=== PATIENT | male | born 1970 | race Caucasian/White ===

== ENCOUNTER 2017-12-15 20:26 | Emergency (ER) | payer OTHER ==
[~2017-12-15] VITALS: Ht 182.9 cm; Wt 103.9 kg
[~2017-12-15 20:26] MED LIST: ACETAMINOPHEN-1 EAC1 PO; ALBUTEROL INHAL17 GM IH; AMBIEN 5 MG TABL5 M1 PO; AZITHROMYCIN 2250 MG PO; BACTRIM DS TAB1 EACH PO; CIPRO500 MG PO; DICLOFENAC SOD50 MG PO; DIPHENHIST50 MG PO; DOXEPIN 10 MG C10 MG PO; FLEXERIL; FLEXERIL PO; FLOMAX0.4 MG PO; FLOVENT HFA 2220 MC1 IH; HYDROCODONE-AP1 EAC6 PO; IBUPROFEN 800800 M1 PO; KEFLEX500 MG PO; MECLIZINE 25 MG25 M1 PO; MEDROL DOSPAK21 TA1 PO; MEDROLDOSEPACK PO; NAPROSYN500 MG PO; NEURONTIN 300300 M1 PO; NOHOMEMEDICATIONS; NORCO 5-325 TA1 EAC1 PO; NORCO 5-325 TA1 EACH PO; ONDANSETRON HCL4 M2 PO; PHENERGAN 25 MG25 M1 PO; PREDNISONE 20 M20 MG PO; PROAIR HFA8.5 GM INH; PYRIDIUM100 M1 PO; ROBAXIN 750 MG750 M1 PO; ROBAXIN500 MG PO; TEGRETOL XR100 MG PO; TESSALON PERLE100 MG PO; TESSALON200 MG PO; VALIUM2 MG PO; VICODIN 5-5001 EACH PO; XANAX 0.25 MG0.25 MG PO; ZPAK PO
[2017-12-15 20:33] VITALS: BP 155/92
[2017-12-15 20:42] LABS: URINE BILIRUBIN NEGATIVE (Negative); URINE BLOOD NEGATIVE (Negative); URINE CLARITY CLEAR; URINE COLOR YELLOW; URINE GLUCOSE-RANDOM NEGATIVE (Negative); URINE KETONES NEGATIVE (Negative); URINE LEUKOCYTES-REFLEX NEGATIVE (Negative); URINE NITRITE-REFLEX NEGATIVE (Negative); URINE PROTEIN NEGATIVE (Negative); URINE SPECIFIC GRAVITY 1.025 (1.005-1.030); URINE UROBILINOGEN 0.2 E.U./dl (0.2-1.0)
== END 2017-12-15 20:50 | disposition home or self-care (01) ==
LOC: M.ERS 20:26
PROVIDERS: Nurse Practitioner Family
DX: Z20.2 Contact with and (suspected) exposure to infections with a predominantly sexual mode of transmission (principal); F41.9 Anxiety disorder, unspecified; Z98.890 Other specified postprocedural states

== ENCOUNTER 2017-12-30 13:49 | Emergency (ER) | payer OTHER ==
[~2017-12-30] VITALS: Ht 182.9 cm; Wt 102.1 kg
[2017-12-30] MEDS ORDERED: DOXEPIN 25 MG C25 MG PO (13:54)
[2017-12-30 14:21] LABS: HEMATOCRIT 51.7 % (42.0-52.0); MCH 30.3 pg (26.0-34.0); MCHC 32.9 g/dL (28.0-37.0); MCV 92.3 fL (80.0-100.0); MPV 8.2 fl. (7.2-11.1); RBC 5.61 mil/uL (4.50-6.00); RDW-CV 14.1 % (10.5-14.5); WBC 7.5 thou/uL (4.0-11.0)
[2017-12-30 14:25] LABS: ANION GAP 5 mmol/L (7-16); BUN 15 mg/dL (7-18); CALCIUM 8.4 mg/dL (8.5-10.1); CHLORIDE 105 mmol/L (98-107); CO2 31 mmol/L (21-32); CREATININE 1.2 mg/dL (0.6-1.3); GLUCOSE 95 mg/dL (70-99); POTASSIUM 3.8 mmol/L (3.5-5.1); SODIUM 141 mmol/L (136-145)
[2017-12-30 14:33] LABS: TROPONIN-I LEVEL <0.06 ng/mL (<0.06)
[2017-12-30 16:31] VITALS: BP 134/76
--- NOTE | 2017-12-31 13:00 | EKG ---
[place] [address] ELECTROCARDIOGRAM REPORT Name: MAILE BARNES Room: [facility]#: [id number] Admission: 12/30/17 Attend Phys: Discharge: 12/30/17 Date of : 72 Report #: [id number] THIS REPORT FOR: //name// [facility] ED Test Date: 2017-12-30 Test Time: 14:33:10 Pat Name: MAILE RIZVILEY Department: Room: Gender: M Ux Developer Designer: : 1970 Requested By: Sagrario Nolasco Order Number: [id number] MD: Alec Page Measurements Intervals [place] Rate: 106 P: 61 DE: 169 QRS: -70 QRSD: 96 T: 41 QT: 319 QTc: 424 Interpretive Statements Sinus tachycardia LAD, consider left anterior fascicular block Borderline low voltage, extremity leads Compared to ECG 05/20/2015 22:46:18 Sinus rhythm no longer present Electronically Signed On 12-31-2017 13:00:15 CDT by Alec Page [email or web address] <ELECTRONICALLY SIGNED> By: Alec Page MD, [facility] 12/31/17 1300 1433 1433 Alec Page MD, [facility] /EPI
--- NOTE | 2018-01-07 09:07 | PATH ---
[address] [address] PATHOLOGY RPT PROCEDURE Name: DAVID OWEN Room: [facility]#: [id number] Admission: 12/30/17 Date of : 72 Discharge: 12/30/17 Report #: [id number] Path Case #: [id number] [facility] Accession Number: [id number] . 01 Material submitted: . ESOPHAGEAL BIOPSY . 01 Clinician provided ICD-10: T17.208A . 01 Clinical history: . Food bolus, rule out eosinophilic esophagitis . 02 Diagnosis: Esophageal biopsy: - Compatible with eosinophilic (allergic) esophagitis (see comment). P/01/01/2018 . 02 Comment: The biopsies reveal benign esophageal mucosa with prominent basilar cell hyperplasia and variable numbers of eosinophils generally ranging between 10 to 30 per high power field with focal superficial/surface aggregation also noted. Scant submucosal stroma appears fibrotic. (HIRA:pit 01/01/2018) . 02 Electronically signed: . Roc Jack MD, Pathologist NPI- [id number] . 01 Gross description: . Received in formalin "David Owen, esophageal biopsy" are 2 translucent tissue fragments each averaging 0.2 cm which are entirely submitted as A1. . (MYRON; 12/31/2017) JBR/JBR . 02 Pathologist provided ICD-10: K20.0 . 02 CPT . 288282 Specimen Comment: A courtesy copy of this report has been sent to Specimen Comment: [phone], . Specimen Comment: Report sent to / DR SIMONS Performed at: [address] [id number] [place] [address] PATHOLOGY RPT PROCEDURE Name: DAVID OWEN [id number] Admission: 12/30/17 Date of : 72 Discharge: 12/30/17 Report #: [id number] Path Case #: [id number] MD Dirk Iglesias MD Phone: [phone] Performed at: [address] [address] [address], [place], [place] [id number] MD Roc Jack MD Phone: [phone]
== END 2017-12-30 16:58 | disposition home or self-care (01) ==
LOC: M.GI 13:49 → M.ERS 13:49 → M.GI 13:49
PROVIDERS: Physician Assistant
DX: R13.10 Dysphagia, unspecified (principal); R00.0 Tachycardia, unspecified; F41.9 Anxiety disorder, unspecified

== ENCOUNTER 2018-01-31 11:55 | Emergency (ER) | payer OTHER ==
[~2018-01-31] VITALS: Ht 182.9 cm; Wt 102.1 kg
[~2018-01-31 11:55] MED LIST changes: +DOXEPIN 25 MG C25 MG PO
[2018-01-31 13:12] LABS: URINE BILIRUBIN NEGATIVE (Negative); URINE BLOOD NEGATIVE (Negative); URINE CLARITY CLEAR; URINE COLOR YELLOW; URINE GLUCOSE-RANDOM NEGATIVE (Negative); URINE KETONES NEGATIVE (Negative); URINE LEUKOCYTES-REFLEX NEGATIVE (Negative); URINE NITRITE-REFLEX NEGATIVE (Negative); URINE PROTEIN NEGATIVE (Negative); URINE UROBILINOGEN 0.2 E.U./dl (0.2-1.0)
[2018-01-31] MEDS ORDERED: ACYCLOVIR 800800 MG PO (13:21)
[2018-01-31 13:32] VITALS: BP 133/90
== END 2018-01-31 13:35 | disposition home or self-care (01) ==
LOC: M.ERS 11:55
PROVIDERS: Nurse Practitioner Family
DX: A60.01 Herpesviral infection of penis (principal); F41.9 Anxiety disorder, unspecified

== ENCOUNTER 2018-04-25 17:48 | Emergency (ER) | payer OTHER ==
[~2018-04-25] VITALS: Ht 182.9 cm; Wt 103.9 kg
[~2018-04-25 17:48] MED LIST changes: +ACYCLOVIR 800800 MG PO
[2018-04-25] MEDS ORDERED: IBUPROFEN 800800 M1 PO (18:09)
[2018-04-25] MEDS ORDERED: ROBAXIN500 MG PO (18:09)
[2018-04-25 18:55] VITALS: BP 127/75
== END 2018-04-25 18:56 | disposition home or self-care (01) ==
LOC: M.ERS 17:48
DX: S16.1XXA Strain of muscle, fascia and tendon at neck level, initial encounter (principal); S39.012A Strain of muscle, fascia and tendon of lower back, initial encounter; F41.9 Anxiety disorder, unspecified; Z98.890 Other specified postprocedural states; V49.49XA Driver injured in collision with other motor vehicles in traffic accident, initial encounter; Y93.89 Activity, other specified; Y92.89 Other specified places as the place of occurrence of the external cause; Y99.8 Other external cause status

== ENCOUNTER 2018-06-20 00:43 | Emergency (ER) | payer OTHER ==
[~2018-06-20] VITALS: Ht 185.4 cm; Wt 104.3 kg
[2018-06-20] MEDS ORDERED: XANAX1 MG PO (01:01)
[2018-06-20 01:02] LABS: URINE BILIRUBIN NEGATIVE (Negative); URINE BLOOD NEGATIVE (Negative); URINE CLARITY CLEAR; URINE COLOR YELLOW; URINE GLUCOSE-RANDOM NEGATIVE (Negative); URINE KETONES NEGATIVE (Negative); URINE LEUKOCYTES-REFLEX 1+ (Negative); URINE NITRITE-REFLEX NEGATIVE (Negative); URINE PROTEIN NEGATIVE (Negative); URINE UROBILINOGEN 0.2 E.U./dl (0.2-1.0)
[2018-06-20 01:11] LABS: BACTERIA-REFLEX >30 Many /HPF (None Seen); CASTS None Seen /LPF (None Seen); CRYSTALS None Seen /LPF (None Seen); MUCUS 0-3 Light strn/LPF (None Seen); SQUAMOUS 0-3 Few /LPF (0-3); URINE RBC 3-10 Few /HPF (0-2); URINE WBC-REFLEX >25 Many /HPF (0-5)
[2018-06-20] MEDS ORDERED: CIPROFLOXACIN500 M1 PO (01:53)
[2018-06-20 02:09] VITALS: BP 132/86
[2018-06-20 15:09] LABS: HIV-1/HIV-2 ANTIBODY Non Reactive (Non Reactive)
== END 2018-06-20 02:12 | disposition home or self-care (01) ==
LOC: M.ERS 00:43
PROVIDERS: Personal Emergency Response Attendant
DX: N39.0 Urinary tract infection, site not specified (principal); Z20.2 Contact with and (suspected) exposure to infections with a predominantly sexual mode of transmission; F41.9 Anxiety disorder, unspecified; Z90.89 Acquired absence of other organs

== ENCOUNTER 2018-06-25 13:00 | Emergency (ER) | payer OTHER ==
[~2018-06-25] VITALS: Ht 182.9 cm; Wt 105.7 kg
[~2018-06-25 13:00] MED LIST changes: +CIPROFLOXACIN500 M1 PO; +XANAX1 MG PO
[2018-06-25 13:14] LABS: URINE BILIRUBIN NEGATIVE (Negative); URINE BLOOD NEGATIVE (Negative); URINE CLARITY CLEAR; URINE COLOR YELLOW; URINE GLUCOSE-RANDOM NEGATIVE (Negative); URINE KETONES NEGATIVE (Negative); URINE LEUKOCYTES-REFLEX NEGATIVE (Negative); URINE NITRITE-REFLEX NEGATIVE (Negative); URINE PROTEIN NEGATIVE (Negative); URINE SPECIFIC GRAVITY 1.025 (1.005-1.030); URINE UROBILINOGEN 0.2 E.U./dl (0.2-1.0)
[2018-06-25 14:10] VITALS: BP 112/62
== END 2018-06-25 14:10 | disposition home or self-care (01) ==
LOC: M.ERS 13:00
PROVIDERS: Nurse Practitioner Psychiatric/Mental Health
DX: Z20.2 Contact with and (suspected) exposure to infections with a predominantly sexual mode of transmission (principal); Z72.51 High risk heterosexual behavior; F41.9 Anxiety disorder, unspecified; Z98.890 Other specified postprocedural states

== ENCOUNTER 2018-07-02 15:26 | Emergency (ER) | payer OTHER ==
[~2018-07-02] VITALS: Ht 182.9 cm; Wt 105.7 kg
[2018-07-02] MEDS ORDERED: DOXEPIN 10 MG C10 MG PO (15:43)
[2018-07-02 16:28] VITALS: BP 127/89
== END 2018-07-02 16:29 | disposition home or self-care (01) ==
LOC: M.ERS 15:26
DX: Z20.2 Contact with and (suspected) exposure to infections with a predominantly sexual mode of transmission (principal); F41.9 Anxiety disorder, unspecified; Z98.890 Other specified postprocedural states

== ENCOUNTER 2018-07-08 11:47 | Emergency (ER) | payer OTHER ==
[~2018-07-08] VITALS: Ht 182.9 cm; Wt 105.7 kg
[2018-07-08 12:29] LABS: URINE BILIRUBIN NEGATIVE (Negative); URINE BLOOD NEGATIVE (Negative); URINE CLARITY CLEAR; URINE COLOR YELLOW; URINE GLUCOSE-RANDOM NEGATIVE (Negative); URINE KETONES NEGATIVE (Negative); URINE LEUKOCYTES-REFLEX NEGATIVE (Negative); URINE NITRITE-REFLEX NEGATIVE (Negative); URINE PROTEIN NEGATIVE (Negative); URINE UROBILINOGEN 0.2 E.U./dl (0.2-1.0)
[2018-07-08] MEDS ORDERED: DOXYCYCLINE 10100 MG PO (12:45)
[2018-07-08 13:51] VITALS: BP 138/89
== END 2018-07-08 13:52 | disposition home or self-care (01) ==
LOC: M.ERS 11:47
PROVIDERS: Emergency Medicine Emergency Medical Services
DX: A64 Unspecified sexually transmitted disease (principal); F41.9 Anxiety disorder, unspecified; Z90.89 Acquired absence of other organs

== ENCOUNTER 2019-01-13 11:01 | Emergency (ER) | payer OTHER ==
[~2019-01-13] VITALS: Ht 182.9 cm; Wt 107.5 kg
[~2019-01-13 11:01] MED LIST changes: +DOXYCYCLINE 10100 MG PO
[2019-01-13] MEDS ORDERED: EAR WAX DROPS15 ML OTIC (12:08)
[2019-01-13 12:11] VITALS: BP 150/89
== END 2019-01-13 12:10 | disposition home or self-care (01) ==
LOC: M.ERS 11:01
DX: H61.21 Impacted cerumen, right ear (principal); F41.9 Anxiety disorder, unspecified; Z90.89 Acquired absence of other organs; Z86.19 Personal history of other infectious and parasitic diseases

== ENCOUNTER 2019-05-13 12:56 | Emergency (ER) | payer OTHER ==
[~2019-05-13] VITALS: Ht 182.9 cm; Wt 106.6 kg
[~2019-05-13 12:56] MED LIST changes: +EAR WAX DROPS15 ML OTIC
[2019-05-13 13:14] LABS: URINE BILIRUBIN NEGATIVE (Negative); URINE BLOOD NEGATIVE (Negative); URINE CLARITY CLEAR; URINE COLOR YELLOW; URINE GLUCOSE-RANDOM NEGATIVE (Negative); URINE KETONES NEGATIVE (Negative); URINE LEUKOCYTES-REFLEX NEGATIVE (Negative); URINE NITRITE-REFLEX NEGATIVE (Negative); URINE PROTEIN NEGATIVE (Negative); URINE SPECIFIC GRAVITY 1.015 (1.005-1.030); URINE UROBILINOGEN 0.2 E.U./dl (0.2-1.0)
[2019-05-13 14:04] VITALS: BP 123/87
== END 2019-05-13 14:05 | disposition home or self-care (01) ==
LOC: M.ERS 12:56
PROVIDERS: Physician Assistant
DX: R30.0 Dysuria (principal); Z90.89 Acquired absence of other organs

== ENCOUNTER 2019-12-31 13:57 | Emergency (ER) | payer OTHER ==
[~2019-12-31] VITALS: Ht 182.9 cm; Wt 105.2 kg
[2019-12-31 14:09] VITALS: BP 132/93
[2019-12-31 14:12] LABS: URINE BILIRUBIN NEGATIVE (Negative); URINE BLOOD NEGATIVE (Negative); URINE CLARITY CLEAR; URINE COLOR YELLOW; URINE GLUCOSE-RANDOM NEGATIVE (Negative); URINE KETONES NEGATIVE (Negative); URINE LEUKOCYTES-REFLEX NEGATIVE (Negative); URINE NITRITE-REFLEX NEGATIVE (Negative); URINE PROTEIN NEGATIVE (Negative); URINE SPECIFIC GRAVITY 1.025 (1.005-1.030); URINE UROBILINOGEN 0.2 E.U./dl (0.2-1.0)
[2019-12-31] MEDS ORDERED: DOXEPIN HC10 MG/1 ML PO (14:12)
[2019-12-31] MEDS ORDERED: AZITHROMYCIN 2250 MG PO (14:33)
[2019-12-31] MEDS ORDERED: SUPRAX400 M1 PO (14:33)
== END 2019-12-31 14:43 | disposition home or self-care (01) ==
LOC: M.ERS 13:57
PROVIDERS: Family Medicine
DX: N48.89 Other specified disorders of penis (principal); Z20.2 Contact with and (suspected) exposure to infections with a predominantly sexual mode of transmission

== ENCOUNTER 2020-03-09 23:39 | Emergency (ER) | payer OTHER ==
[~2020-03-09] VITALS: Ht 182.9 cm; Wt 106.6 kg
[~2020-03-09 23:39] MED LIST changes: +DOXEPIN HC10 MG/1 ML PO; +SUPRAX400 M1 PO
[2020-03-10 00:20] LABS: URINE BILIRUBIN NEGATIVE (Negative); URINE BLOOD NEGATIVE (Negative); URINE CLARITY CLEAR; URINE COLOR YELLOW; URINE GLUCOSE-RANDOM NEGATIVE (Negative); URINE KETONES NEGATIVE (Negative); URINE LEUKOCYTES-REFLEX NEGATIVE (Negative); URINE NITRITE-REFLEX NEGATIVE (Negative); URINE PROTEIN NEGATIVE (Negative); URINE UROBILINOGEN 0.2 E.U./dl (0.2-1.0)
[2020-03-10 00:42] LABS: ABSOLUTE EOSINOPHILS 0.2 thou/uL (0.0-0.7); ABSOLUTE LYMPHOCYTES 2.4 thou/uL (0.8-5.3); ABSOLUTE MONOCYTES 0.3 thou/uL (0.0-1.2); ABSOLUTE NEUTROPHILS 5.5 thou/uL (1.6-8.1); BASOPHILS 0.3 %; EOSINOPHILS 2.6 %; HEMATOCRIT 50.3 % (42.0-52.0); HEMOGLOBIN 17.1 gm/dL (14.0-18.0); LYMPHOCYTES 28.7 %; MCH 30.5 pg (26.0-34.0); MCHC 34.1 g/dL (28.0-37.0); MCV 89.7 fL (80.0-100.0); MONOCYTES 4.1 %; MPV 7.9 fl. (7.2-11.1); NUCLEATED RBCS 0 /100WBC; PLATELET COUNT* 237 thou/uL (150-400); POLYS 64.3 %; RBC 5.61 mil/uL (4.50-6.00); RDW-CV 13.7 % (10.5-14.5); WBC 8.5 thou/uL (4.0-11.0)
[2020-03-10 00:58] LABS: CALCIUM 8.5 mg/dL (8.5-10.1); CREATININE 1.4 mg/dL (0.6-1.3); POTASSIUM 3.7 mmol/L (3.5-5.1)
[2020-03-10 01:03] LABS: ALBUMIN 3.5 g/dL (3.4-5.0); TOTAL BILIRUBIN 0.4 mg/dL (<0.1-1.0); TOTAL PROTEIN 7.1 g/dL (6.4-8.2)
[2020-03-10 05:25] VITALS: BP 125/74
== END 2020-03-10 05:25 | disposition home or self-care (01) ==
LOC: M.ERS 23:39
PROVIDERS: Personal Emergency Response Attendant
DX: I31.3 Pericardial effusion (noninflammatory) (principal); R19.7 Diarrhea, unspecified; Z87.442 Personal history of urinary calculi; Z90.89 Acquired absence of other organs; F41.9 Anxiety disorder, unspecified; Z90.49 Acquired absence of other specified parts of digestive tract; Z79.899 Other long term (current) drug therapy

== ENCOUNTER 2021-04-04 13:05 | Emergency (ER) | payer OTHER ==
[~2021-04-04] VITALS: Ht 182.9 cm; Wt 110.7 kg
[2021-04-04 16:52] LABS: URINE BILIRUBIN NEGATIVE (Negative); URINE BLOOD NEGATIVE (Negative); URINE CLARITY CLEAR; URINE COLOR YELLOW; URINE GLUCOSE-RANDOM NEGATIVE (Negative); URINE KETONES NEGATIVE (Negative); URINE LEUKOCYTES-REFLEX NEGATIVE (Negative); URINE NITRITE-REFLEX NEGATIVE (Negative); URINE PROTEIN NEGATIVE (Negative); URINE SPECIFIC GRAVITY 1.025 (1.005-1.030); URINE UROBILINOGEN 0.2 E.U./dl (0.2-1.0)
[2021-04-04 17:21] LABS: ABSOLUTE EOSINOPHILS 0.3 thou/uL (0.0-0.7); ABSOLUTE MONOCYTES 0.3 thou/uL (0.0-1.2); BASOPHILS 0.2 %; EOSINOPHILS 3.3 %; HEMATOCRIT 52.5 % (42.0-52.0); HEMOGLOBIN 17.6 gm/dL (14.0-18.0); LYMPHOCYTES 20.7 %; MCH 30.2 pg (26.0-34.0); MCHC 33.5 g/dL (28.0-37.0); MCV 90.4 fL (80.0-100.0); MONOCYTES 3.6 %; MPV 8.1 fl. (7.2-11.1); NUCLEATED RBCS 0 /100WBC; PLATELET COUNT* 235 thou/uL (150-400); POLYS 72.2 %; RBC 5.81 mil/uL (4.50-6.00); RDW-CV 14.2 % (10.5-14.5); WBC 9.6 thou/uL (4.0-11.0)
[2021-04-04 17:28] LABS: CALCIUM 8.4 mg/dL (8.5-10.1); CREATININE 1.2 mg/dL (0.6-1.3); POTASSIUM 3.9 mmol/L (3.5-5.1)
[2021-04-04 17:37] LABS: ALBUMIN 3.6 g/dL (3.4-5.0); TOTAL BILIRUBIN 0.8 mg/dL (<0.1-1.0); TOTAL PROTEIN 7.3 g/dL (6.4-8.2)
--- NOTE | 2021-04-04 18:18 | EKG ---
[place] [address] ELECTROCARDIOGRAM REPORT Name: MAILE BARNES Room: [facility]#: [id number] Admission: 04/04/21 Attend Phys: Discharge: Date of : 72 Date of Service: 04/04/21 1736 Report #: [id number] THIS REPORT FOR: //name// [facility] ED Test Date: 2021-04-04 Test Time: 17:36:18 Pat Name: MAILE BARNES Department: Room: Gender: Scientific Software Developer: : 1970 Requested By: Denia Villanueva Order Number: [id number] MD: Alec Page Measurements Intervals [place] Rate: 64 P: 56 PA: 177 QRS: -70 QRSD: 100 T: 15 QT: 374 QTc: 386 Interpretive Statements Sinus rhythm Inferior infarct, old Compared to ECG 12/30/2017 14:33:10 Myocardial infarct finding now present Sinus tachycardia no longer present Electronically Signed On 04-04-2021 18:18:09 [employer] by Alec Page [email or web address] <ELECTRONICALLY SIGNED> By: Alec Page MD, [facility] 04/04/21 1818 1736 1736 Alec Page MD, [facility] /EPI
[2021-04-04] MEDS ORDERED: ZOFRAN ODT4 MG PO (18:37)
[2021-04-04] MEDS ORDERED: DICYCLOMINE HCL20 MG PO (18:37)
[2021-04-04 18:46] VITALS: BP 137/90
== END 2021-04-04 18:45 | disposition home or self-care (01) ==
LOC: M.ERS 13:05
PROVIDERS: Nurse Practitioner Family
DX: K42.9 Umbilical hernia without obstruction or gangrene (principal); R10.11 Right upper quadrant pain; R07.81 Pleurodynia; R19.7 Diarrhea, unspecified; R06.02 Shortness of breath; R42 Dizziness and giddiness; F41.9 Anxiety disorder, unspecified; Z98.890 Other specified postprocedural states; Z90.49 Acquired absence of other specified parts of digestive tract; Z90.89 Acquired absence of other organs; Z79.899 Other long term (current) drug therapy